=== PATIENT | male | born 1965 | race African-American/Black ===

== ENCOUNTER 2018-06-03 11:55 | Inpatient (IN) | payer OTHER ==
[2018-06-03 13:00] VITALS: BMI 22.4
--- NOTE | 2018-06-03 15:00 | HP ---
CIWA Score Nausea/Vomitin Muscle Tremors: 3 Anxiety: 3 Agitation: 2 Paroxysmal Sweats: 3 Orientation: 0-Oriented Tacttile Disturbances: 0-None Auditory Disturbances: 0-None Visual Disturbances: 0-None Headache: 0-None Present CIWA-Ar Total Score: 13 - Admission Criteria [facility]ASAS Guidelines: Admission for Medically Managed Detox: Requires at least one of the followin. CIWA greater than 12 2. Seizures within the past 24 hours 3. Delirium tremens within the past 24 hours 4. Hallucinations within the past 24 hours 5. Acute intervention needed for co occurring medical disorder 6. Acute intervention needed for co occurring psychiatric disorder 7. Severe withdrawal that cannot be handled at a lower level of care (continued vomiting, continued diarrhea, abnormal vital signs) requiring intravenous medication and/or fluids 8. Patient presents the following: CIWA greater than 12 Admission Criteria Met: Admission criteria met Admission ROS [facility] - [facility] Chief Complaint: "I need detox please" Allergies/Adverse Reactions: Allergies Allergy/AdvReac Type Severity Reaction Status Date / Time No Known Allergies Allergy Verified 09/28/14 17:05 History of Present Illness: 52 yr old male with alcohol and cocaine addiction presents for detox. pt was last here in 2016, states he has been drinking on and off since then. Endorses a 10 yr sober period about 6 years ago but no remarkable sober period since then. states he is self referred Denies withdrawal induced seizures, had a blackout "about 3 months ago" when his girlfriend told him he was completely out. Denies past nor current SI. Denies medical nor psych hx Exam Limitations: No Limitations - Ebola screening Have you traveled outside of the country in the last 21 days: No Have you had contact with anyone from an Ebola affected area: No Have you been sick,other than usual withdrawal symptoms: No Do you have a fever: No - Review of Systems Constitutional: Loss of Appetite, Night Sweats, Changes in sleep, Unintentional Wgt. Loss EENT: reports: Blurred Vision Respiratory: reports: Shortness of Breath (sometimes on ambulation) Cardiac: reports: No Symptoms Reported GI: reports: Poor Appetite : reports: Frequency Musculoskeletal: reports: No Symptoms Reported Integumentary: reports: Dryness Neuro: reports: No Symptoms reported Endocrine: reports: No Symptoms Reported Hematology: reports: No Symptoms Reported Psychiatric: reports: Orientated x3, Anxious Other Systems: Reviewed and Negative Patient History - Patient Medical History Hx Anemia: No Hx Asthma: No Hx Chronic Obstructive Pulmonary Disease (COPD): No Hx Cancer: No Hx Cardiac Disorders: No Hx Congestive Heart Failure: No Hx Hypertension: No Hx Hypercholesterolemia: No Hx Pacemaker: No HX Cerebrovascular Accident: No Hx Seizures: No Hx Dementia: No Hx Diabetes: No Hx Gastrointestinal Disorders: Yes (Heart robledo, takes tums) Hx Liver Disease: No Hx Genitourinary Disorders: No Hx Sexually Transmitted Disorders: No Hx Renal Disease (ESRD): No Hx Thyroid Disease: No Hx Human Immunodeficiency Virus (HIV): No (neg 2012, wants test ) Hx Hepatitis C: No Hx Depression: No Hx Suicide Attempt: No Hx Bipolar Disorder: No Hx Schizophrenia: No - Patient Surgical History Past Surgical History: No Hx Neurologic Surgery: No Hx Cataract Extraction: No Hx Cardiac Surgery: No Hx Lung Surgery: No Hx Breast Surgery: No Hx Breast Biopsy: No Hx Abdominal Surgery: No Hx Appendectomy: No Hx Cholecystectomy: No Hx Genitourinary Surgery: No Hx Section: No Hx Orthopedic Surgery: No Anesthesia Reaction: No - PPD History Date: 09/30/14 - Reproductive History Patient is a Female of Child Bearing Age (11 -55 yrs old): No - Smoking Cessation Smoking history: Current every day smoker Have you smoked in the past 12 months: Yes Aproximately how many cigarettes per day: 2 Cigars Per Day: 0 Hx Chewing Tobacco Use: No Initiated information on smoking cessation: Yes 'Breaking Loose' booklet given: 06/03/18 - Substance & Tx. History Hx Alcohol Use: Yes Substance Use Type: Cocaine, Marijuana Hx Substance Use Treatment: Yes - Substances Abused Alcohol Route: Oral Frequency: 3-6 times per week Amount used: 4 (22oz ) beer Age of first use: 18 Date of Last Use: 06/02/18 Crack Route: Smoking Frequency: Daily Amount used: $100 Age of first use: 32 Date of Last Use: 06/02/18 Marijuana/Hashish Route: Oral Frequency: 3-6 times per week Amount used: 5 blunts Age of first use: 20 Date of Last Use: 06/02/18 Family Disease History - Family Disease History Family Disease History: Diabetes: Brother (htn), Sister (HTN), Other: Father ( - Alcoholic), Mother ( - Diabetes), Brother, Sister Admission Physical Exam [facility] - Vital Signs Vital Signs: Vital Signs - 24 hr 06/03/18 12:59 Temperature 97.1 F L Pulse Rate 75 Respiratory 18 Rate Blood Pressure 128/81 - Physical General Appearance: Yes: Mild Distress, Anxious HEENTM: Yes: Within Normal Limits Respiratory: Yes: Lungs Clear, Normal Breath Sounds, No Respiratory Distress, No Accessory Muscle Use Neck: Yes: No masses,lesions,Nodules Breast: Yes: Breast Exam Deferred Cardiology: Yes: Within Normal Limits Abdominal: Yes: Non Tender, Soft, Distended Genitourinary: Yes: Within Normal Limits Back: Yes: Normal Inspection Musculoskeletal: Yes: Within Normal Limits Extremities: Yes: Normal Capillary Refill, Normal Inspection, Normal Range of Motion Neurological: Yes: Within Normal Limits, Fully Oriented, Alert, Motor Strength 5 /5 Integumentary: Yes: Normal Color, Warm Lymphatic: Yes: Within Normal Limits - Diagnostic (1) Uncomplicated alcohol dependence Current Visit: Yes Status: Acute (2) Marijuana dependence Current Visit: Yes Status: Chronic (3) Nicotine dependence Current Visit: Yes Status: Chronic (4) Cocaine dependence Current Visit: Yes Status: Chronic Cleared for Admission [facility] - Detox or Rehab [facility] Level of Care: Medically Managed Detox Regimen/Protocol: Librium [facility] Breath Alcohol Content Breath Alcohol Content: 0 Urine Drug Screen - Results Drug Screen Negative: No Urine Drug Screen Results: THC-Marijuana, SHEILA-Cocaine
[2018-06-03] MEDS ORDERED: MAGNESIUM CITRATE 300 ML BOTTLE PO PRN (15:19)
[2018-06-03] MEDS ORDERED: ACETAMINOPHEN 325 MG TABLET (FP) PO PRN (15:19)
[2018-06-03] MEDS ORDERED: MAGNESIUM HYDROX 2400MG/30ML ORAL SUSPENSION 30 ML CUP PO PRN (15:19)
[2018-06-03] MEDS ORDERED: MENTHOL/PHENOL 1 EACH UD MM PRN (15:19)
[2018-06-03] MEDS ORDERED: chlordiazePOXIDE HCL 25 MG CAPSULE PO PRN (15:19)
[2018-06-03] MEDS ORDERED: IBUPROFEN 400 MG TABLET (FP) PO PRN (15:19)
[2018-06-03] MEDS ORDERED: LOPERAMIDE HCL 2 MG CAPSULE PO PRN (15:19)
[2018-06-03] MEDS ORDERED: guaiFENesin/D-METHORPHAN HB 10 ML UNIT-DOSE CUPS PO PRN (15:19)
[2018-06-03] MEDS ORDERED: P-EPHED 60MG/TRIPROLIDI 2.5MG TABLET PO PRN (15:19)
[2018-06-03] MEDS: chlordiazePOXIDE HCL 25 MG CAPSULE PO SCH ×2 (19:05→22:35)
[2018-06-03] MEDS: PANTOPRAZOLE 40 MG TABLET (FP) PO SCH (19:05)
[2018-06-03] MEDS ORDERED: MELATONIN 5 MG TABLETS PO PRN (22:00)
[2018-06-03] MEDS: THIAMINE HCL 100 MG TABLET (FP) PO SCH (22:23)
[2018-06-03] MEDS: MAG HYDROX/AL HYDROX/SIMETH 30 ML UNIT-DOSE CUP PO PRN (22:24)
[2018-06-04] MEDS: chlordiazePOXIDE HCL 25 MG CAPSULE PO SCH ×5 (05:27→22:17)
[2018-06-04] MEDS: MAG HYDROX/AL HYDROX/SIMETH 30 ML UNIT-DOSE CUP PO PRN ×2 (05:28→17:33)
[2018-06-04 10:07] LABS: HEMATOCRIT 44.3 % (35.4-49); HEMOGLOBIN 14.2 GM/dL (11.7-16.9); MCHC 32.1 g/dl (32.0-35.9); MEAN CELL VOLUME 96.7 fl (80-96); MEAN PLT VOLUME 8.2 fl (7.5-11.1); PLATELET COUNT 252 K/MM3 (134-434); RBC 4.58 M/mm3 (4.00-5.60); RDW 14.2 % (11.9-15.9); WHITE BLOOD COUNT 5.4 K/mm3 (4.0-10.0)
[2018-06-04] MEDS: PRENATAL VITAMINS W/ FOLIC ACID TABLET (FP) PO SCH (10:12)
[2018-06-04] MEDS: PANTOPRAZOLE 40 MG TABLET (FP) PO SCH (10:12)
[2018-06-04 10:34] LABS: ALK PHOS 75 U/L (45-117); ANION GAP 7 MMOL/L (8-16); BILIRUBIN,TOTAL 0.5 mg/dL (0.2-1); BLOOD UREA NITROGEN 9 mg/dL (7-18); CALCIUM 7.9 mg/dL (8.5-10.1); CHLORIDE 111 mmol/L (98-107); CO2 23 mmol/L (21-32); CREATININE 0.9 mg/dL (0.55-1.3); GLUCOSE,RANDOM 76 mg/dL (74-106); POTASSIUM 4.3 mmol/L (3.5-5.1); SGOT/AST 20 U/L (15-37); SGPT/ALT 25 U/L (13-61); SODIUM 141 mmol/L (136-145); TOT PROT 6.1 g/dl (6.4-8.2)
--- NOTE | 2018-06-04 11:27 | PN ---
S CIWA - CIWA Score Nausea/Vomitin-Mild Nausea/No Vomiting Muscle Tremors: 1-None Visible, but [place] Anxiety: 2 Agitation: 1-Slight > Activity Paroxysmal Sweats: 2 Orientation: 0-Oriented Tacttile Disturbances: 1-Very Mild Itch/Numbness Auditory Disturbances: 0-None Visual Disturbances: 0-None Headache: 0-None Present CIWA-Ar Total Score: 8 [facility] Progress Note (SOAP) Subjective: feeling oversedated with librium -wants a lower dose Objective: 06/04/18 11:25 Vital Signs Temperature 97.7 F 06/04/18 09:00 Pulse Rate 71 06/04/18 09:00 Respiratory Rate 18 06/04/18 09:00 Blood Pressure 122/77 06/04/18 09:00 O2 Sat by Pulse Oximetry (%) Laboratory Tests 06/04/18 06/04/18 07:00 07:00 WBC 5.4 RBC 4.58 Hgb 14.2 Hct 44.3 MCV 96.7 H MCH 31.0 MCHC 32.1 RDW 14.2 Plt Count 252 MPV 8.2 Sodium 141 Potassium 4.3 Chloride 111 H Carbon Dioxide 23 Anion Gap 7 L BUN 9 Creatinine 0.9 Creat Clearance w eGFR > 60 Random Glucose 76 Calcium 7.9 L Total Bilirubin 0.5 AST 20 ALT 25 Alkaline Phosphatase 75 Total Protein 6.1 L Albumin 3.0 L pt aox3 in nad ambulating Assessment: 06/04/18 11:25 withdrawal sx's improved but feeling oversedated wity librium 50mg Plan: cont detox lower librium dose to 25mg increase fluids
[2018-06-04] MEDS ORDERED: NICOTINE POLACRILEX 2 MG GUM BUC PRN (17:42)
[2018-06-04] MEDS: THIAMINE HCL 100 MG TABLET (FP) PO SCH (22:17)
[2018-06-05] MEDS: chlordiazePOXIDE HCL 25 MG CAPSULE PO SCH ×2 (05:43→10:11)
[2018-06-05] MEDS: PANTOPRAZOLE 40 MG TABLET (FP) PO SCH (10:11)
[2018-06-05] MEDS: PRENATAL VITAMINS W/ FOLIC ACID TABLET (FP) PO SCH (10:11)
--- NOTE | 2018-06-05 11:13 | PN ---
S CIWA - CIWA Score Nausea/Vomitin-No Nausea/No Vomiting Muscle Tremors: 2 Anxiety: 1-Mildly Anxious Agitation: 2 Paroxysmal Sweats: 2 Orientation: 0-Oriented Tacttile Disturbances: 0-None Auditory Disturbances: 0-None Visual Disturbances: 0-None Headache: 0-None Present CIWA-Ar Total Score: 7 S Progress Note (SOAP) Subjective: feeling much better heartburn little shakes Objective: 06/05/18 11:11 Vital Signs Temperature 98.2 F 06/05/18 09:12 Pulse Rate 74 06/05/18 09:12 Respiratory Rate 18 06/05/18 09:12 Blood Pressure 120/85 06/05/18 09:12 O2 Sat by Pulse Oximetry (%) Laboratory Tests 06/04/18 06/04/18 06/04/18 07:00 07:00 07:00 WBC 5.4 RBC 4.58 Hgb 14.2 Hct 44.3 MCV 96.7 H MCH 31.0 MCHC 32.1 RDW 14.2 Plt Count 252 MPV 8.2 Sodium 141 Potassium 4.3 Chloride 111 H Carbon Dioxide 23 Anion Gap 7 L BUN 9 Creatinine 0.9 Creat Clearance w eGFR > 60 Random Glucose 76 Calcium 7.9 L Total Bilirubin 0.5 AST 20 ALT 25 Alkaline Phosphatase 75 Total Protein 6.1 L Albumin 3.0 L RPR Titer Nonreactive aaox3 ambulating no acute distress Assessment: 06/05/18 11:11 mild withdrawal sx Plan: continue detox at current dose zantac 150mg bid
[2018-06-05] MEDS: RANITIDINE HCL 150 MG TABLET (FP) PO SCH ×2 (12:13→22:31)
--- NOTE | 2018-06-05 16:07 | PN ---
S Progress Note Note: pt is transferred to 3N because pt has his on 6N. pt agreed to complete his detox.
[2018-06-05] MEDS: chlordiazePOXIDE 5 MG CAPSULE PO SCH ×2 (17:47→22:32)
[2018-06-05] MEDS: MAG HYDROX/AL HYDROX/SIMETH 30 ML UNIT-DOSE CUP PO PRN (17:49)
[2018-06-05] MEDS: THIAMINE HCL 100 MG TABLET (FP) PO SCH (22:31)
[2018-06-06] MEDS: chlordiazePOXIDE 5 MG CAPSULE PO SCH ×2 (05:43→10:22)
--- NOTE | 2018-06-06 10:17 | PN ---
[facility] Progress Note Note: PATIENT CONTINUES WITH DETOX REGIMEN. WITHDRAWAL SX RESOLVING. C/O SLEEP DISTURBANCE AND MILD DIARRHEA TODAY. Vital Signs Temperature 97.9 F 06/06/18 09:42 Pulse Rate 61 06/06/18 09:42 Respiratory Rate 20 06/06/18 09:42 Blood Pressure 118/73 06/06/18 09:42 O2 Sat by Pulse Oximetry (%) Laboratory Tests 06/04/18 06/04/18 06/04/18 07:00 07:00 07:00 WBC 5.4 RBC 4.58 Hgb 14.2 Hct 44.3 MCV 96.7 H MCH 31.0 MCHC 32.1 RDW 14.2 Plt Count 252 MPV 8.2 Sodium 141 Potassium 4.3 Chloride 111 H Carbon Dioxide 23 Anion Gap 7 L BUN 9 Creatinine 0.9 Creat Clearance w eGFR > 60 Random Glucose 76 Calcium 7.9 L Total Bilirubin 0.5 AST 20 ALT 25 Alkaline Phosphatase 75 Total Protein 6.1 L Albumin 3.0 L RPR Titer Nonreactive PE; ALERT AND ORIENTED X 3 SKIN WARM AND DRY EXT FULL ROM, NO TREMORS AMB AD KWAN A/P WITHDRAWAL SX PATIENT CLINICALLY IMPROVED CONTINUE DETOX UNTIL COMPLETION ORAL FLUIDS ENCOURAGED CONTINUE TO MONITOR FOR D/C IN AM
[2018-06-06] MEDS: RANITIDINE HCL 150 MG TABLET (FP) PO SCH ×2 (10:21→22:47)
[2018-06-06] MEDS: PRENATAL VITAMINS W/ FOLIC ACID TABLET (FP) PO SCH (10:21)
[2018-06-06] MEDS: chlordiazePOXIDE HCL 10 MG CAPSULE PO SCH ×2 (18:03→22:47)
[2018-06-06] MEDS: THIAMINE HCL 100 MG TABLET (FP) PO SCH (22:47)
[2018-06-07] MEDS: chlordiazePOXIDE HCL 10 MG CAPSULE PO SCH ×2 (05:41→10:01)
[2018-06-07 09:30] VITALS: BP 119/74; PULSE 73; TEMP 99
[2018-06-07] MEDS: RANITIDINE HCL 150 MG TABLET (FP) PO SCH (10:00)
[2018-06-07] MEDS: PRENATAL VITAMINS W/ FOLIC ACID TABLET (FP) PO SCH (10:00)
--- NOTE | 2018-06-07 10:11 | PN ---
S Progress Note (SOAP) Subjective: alert,no complaint Objective: 06/07/18 10:09 Vital Signs Temperature 99.0 F 06/07/18 09:29 Pulse Rate 73 06/07/18 09:29 Respiratory Rate 17 06/07/18 09:29 Blood Pressure 119/74 06/07/18 09:29 O2 Sat by Pulse Oximetry (%) Assessment: 06/07/18 10:09 detox completed,no withdrawal symptom Plan: discharge today,follow up with after care program as arrangement
--- NOTE | 2018-06-07 10:15 | DS ---
[facility] Detox Discharge Summary Admission Date: 06/03/18 Discharge Date: 06/07/18 - History Present History: Alcohol Dependence, Cannabis Dependence, Cocaine Dependence Pertinent Past History: nicotine dependence - Physical Exam Results Vital Signs: Vital Signs Temperature 99.0 F 06/07/18 09:29 Pulse Rate 73 06/07/18 09:29 Respiratory Rate 17 06/07/18 09:29 Blood Pressure 119/74 06/07/18 09:29 O2 Sat by Pulse Oximetry (%) - Treatment Hospital Course: Detox Protocol Followed, Detoxed Safely, Responded well, Discharged Condition Good - Medication Discharge Medications: Ambulatory Orders NK [No Known Home Medication] 09/28/14 - Diagnosis (1) Alcohol dependence with uncomplicated withdrawal Current Visit: Yes Status: Acute (2) Cocaine dependence Current Visit: Yes Status: Chronic (3) Cannabis dependence Current Visit: Yes Status: Acute (4) Nicotine dependence Current Visit: Yes Status: Chronic
== END 2018-06-07 11:05 | disposition home or self-care (01) | DRG 774 ==
LOC: YASAS 11:55 → Y6N 17:28 → Y3N 06-05 14:03
PROC: HZ2ZZZZ Detoxification Services for Substance Abuse Treatment (ICD-10-PCS; principal; 2018-06-03)
DX: F10.230 Alcohol dependence with withdrawal, uncomplicated (principal); F14.20 Cocaine dependence, uncomplicated; F12.20 Cannabis dependence, uncomplicated; F17.210 Nicotine dependence, cigarettes, uncomplicated; R12 Heartburn
CPT/HCPCS: 36415; 80053; 85027; 86593